=== PATIENT | male | born 1965 | race Caucasian/White ===

== ENCOUNTER 2024-04-08 23:20 | Emergency (ER) | payer MEDICAID ==
[~2024-04-08] VITALS: Ht 188 cm; Wt 108.5 kg
[2024-04-08 23:27] VITALS: BP 152/93; PULSE 87; RESP 16; TEMP 98.2; O2SAT 99
[2024-04-09 00:10] LABS: CLARITY URINE CLEAR (CLEAR); COLOR URINE DARK YELLOW (YELLOW); GLUCOSE URINE NEGATIVE (NEGATIVE); KETONES URINE NEGATIVE (NEGATIVE); LEUKOCYTE ESTERASE URINE TRACE (NEGATIVE); NITRITE URINE NEGATIVE (NEGATIVE); OCCULT BLOOD URINE NEGATIVE (NEGATIVE); PH URINE 6.5 (4.5-8.0); PROTEIN URINE NEGATIVE (NEGATIVE); SPECIFIC GRAVITY URINE 1.024 (1.005-1.030); UROBILINOGEN URINE 0.2 E.U./dL (0.2-1.0)
[2024-04-09] MEDS ORDERED: CEFTRIAXONE SODIUM 500MG VIAL IM ONE (00:45)
[2024-04-09] MEDS ORDERED: DOXY100T2 MT (01:00)
[2024-04-09] MEDS: CEFTRIAXONE SODIUM 500MG VIAL IM NR (01:00)
[2024-04-09 06:09] LABS: RBC URINE 0-2 /hpf (0-2); SQUAMOUS EPITHELIAL CELL URINE NONE SEEN /lpf (RARE/1+)
[2024-04-09 06:10] LABS: BACTERIA URINE NONE SEEN
[2024-04-11 04:10] LABS: CHLAMYDIA TRACHOMATIS NAA Negative (Negative); NEISSERIA GONORRHOEAE NAA Negative (Negative)
== END 2024-04-09 01:45 | disposition home or self-care (01) ==
LOC: ER 23:20
DX: A64 Unspecified sexually transmitted disease (principal); R30.0 Dysuria
CPT/HCPCS: 99283; 87491; 87591; 81003; 87086; 96372; J0696